=== PATIENT | female | born 1950 | race Caucasian/White ===

== ENCOUNTER 2019-02-21 01:52 | Outpatient (RCR) | payer MEDICARE, OTHER, SELFPAY ==
[2019-02-21] MEDS: Heparin 500 UNITS/5 ML SYRINGE IV (09:10)
[2019-02-21] MEDS: Normal Saline Flush 10 ML SYR IVP (09:10)
== END 2019-02-23 23:59 | disposition home or self-care (01) ==
LOC: INF 01:52
PROVIDERS: Visit Provider Internal Medicine
DX: Z45.2 Encounter for adjustment and management of vascular access device (principal)
CPT/HCPCS: 96523

== ENCOUNTER 2019-02-24 14:00 | Emergency (ER) | payer MEDICARE, OTHER, SELFPAY ==
[2019-02-24] VITALS (39 sets, daily range): BP systolic 57–115; BP diastolic 33–89; PULSE 52–115; RESP 12–32; TEMP 37.1; O2SAT 95–100
--- NOTE | 2019-02-24 14:29 | W.ED.GENAD ---
Discharge Plan Disposition Patient Disposition: HOME Condition: Stable Discharge Details Chief Complaint: GenMedical Clinical Impression: Leg pain, right, Hypotension Primary Care Provider: None,None ED Provider: Duncan Calderón Home Meds and New Rx's Prescriptions: New ciprofloxacin HCl 500 mg tablet 500 mg PO BID Qty: 14 RF: 0 No Action magnesium 30 mg Tablet 30 mg PO DAILY RF: 0 Discharge Instructions Instructions: Leg Pain (ED) Additional Instructions: you should receive a call tomorrow for an appointment for your ultrasound if you feel more ill or have new symptoms such as difficulty breathing or fevers return to the emergency department Discharge Data Discharge Date/Time-TO BE ENTERED AT DEPARTURE: 02/24/19 17:28 Medical Decision Making <Ayleen Hahn MD - Last Filed: 03/04/19 20:07> Jessi lOguin is a 69-year-old woman with a 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 On exam patient is well and nontoxic appearing. Systolic blood pressure in 50s, patient is tachycardic in the 110s. [id number] bedside ultrasound shows no pericardial effusion, no DVT in right popliteal region. Concern for PE/DVT versus infection versus ACS/CHF, dehydration, other. Exam/history is not consistent with meningitis, acute aortic pathology, acute intra-abdominal etiology. Plan for EKG, CT chest, screening labs, IV fluid hydration, telemetry. If CT chest negative will obtain ultrasound. EKG shows sinus tach at 107, normal axis, no acute ischemic changes, nondiagnostic EKG Patient monitored closely. Blood pressure improved to systolic 80-90 after IV fluid, radial pulses palpable after IV fluids. Patient's now at bedside, he reports that patient typically has a blood pressure with systolic in the 80s. He reports that this has been normal for her for some time. Patient continues to report that she feels well and in her usual state of health. We will continue fluid, hold Levophed. Labs show UTI, holding antibiotics pending results of CT chest. Awaiting Doppler of lower extremity pulses. DP pulses present bilaterally on Doppler per nursing. Patient signed out to Dr. Calderón at time of shift change with CT chest, treatment with antibiotics for UTI if no other bacterial infection found on CT, second liter fluid, reassessment pending. If CT negative, will need ultrasound of the lower leg to be performed tomorrow morning as no ultrasound available at this time. Medical Records Medical records reviewed: Yes I reviewed the patient's medical records. <Duncan Calderón MD - Last Filed: 02/24/19 17:13> Pt feels much better and BP now 112/80 on my exam and is ambulating without any symptoms. She does have some mass effect on the pulm artery supplying the right upper lobe. She is aware of this and sees an oncologist in [place]. I advised f/u with them and she will return tomorrow to have a leg u/s and return if worsening. will start cipro for likely uti Imaging Data Radiologic Study: Attestation: I personally reviewed and interpreted this imaging study as follows: Imaging: CT Scan Radiologist's impression: IMPRESSION: Severe thinning in the pulmonary artery supplying the right upper lobe suggesting mass effect from adjacent mass or lymphadenopathy in the mediastinum. There is right paratracheal soft tissue prominence suggesting underlying lymphadenopathy or mass. Left paratracheal lymph node versus esophageal mass on image /. Consider PET CT. Lab Data Lab results reviewed: Yes I reviewed the patient's lab results. HPI <Ayleen Hahn MD - Last Filed: 03/04/19 20:07> General Mode of arrival: ambulatory. Date/Time Provider Initiated Documentation: 02/24/19 14:29. Limitations to Documentation: no limitations. Information obtained by: patient, RN notes reviewed and old records reviewed. HPI Narrative: Jessi Olguin is a 69-year-old woman with history of cancer presenting to the emergency department with lightheadedness. Patient currently with diagnosis of small small lung cancer, has received radiation and chemotherapy with last chemotherapy in October. Patient recently in [place], and return to [place] in early January. Patient here reporting that for the past 4 days she has had right leg pain that is worse with moving the leg and standing, and also has felt lightheaded when upright or walking since approximately same time as her leg pain started. She denies any other pain, vomiting, diarrhea, shortness of breath, cough, fevers, dysuria, rash, numbness/weakness the extremities. She reports that she has been eating and drinking as usual. No history of blood clots. Feels otherwise well in her usual state of health. When she is resting in bed or on a couch, she does not have symptoms. Related Data Home Medications Medication Instructions Recorded Confirmed ciprofloxacin HCl 500 mg PO BID #14 tab 02/24/19 02/25/19 magnesium 30 mg PO DAILY 02/24/19 02/25/19 Previous Rx's Medication Instructions Recorded ciprofloxacin HCl 500 mg PO BID #14 tab 02/24/19 Allergies Allergy/AdvReac Type Severity Reaction Status Date / Time penicillin G AdvReac Unverified 02/25/19 10:43 penicillin V AdvReac Unverified 02/25/19 10:43 General Stated Complaint: GenMedical RUBEN: 2 Review of Systems <Ayleen Hahn MD - Last Filed: 03/04/19 20:07> Review of Systems Constitutional: denies fevers Eyes: denies eye pain ENT: denies facial pain, dental pain, sore throat Cardiovascular: denies chest pain, edema, reports lightheadedness Respiratory: denies SOB, cough GI: denies abdominal pain, vomiting, diarrhea : denies flank pain MSK: denies back pain, neck pain, arthralgias, reports myalgias right leg Skin: denies rash Neuro: denies headaches, numbness, focal weakness, vertigo PFSH <Ayleen Hahn MD - Last Filed: 03/04/19 20:07> Social History Smoking/Tobacco Use Status: Current every day Tobacco Type: cigarettes Alcohol Intake: current Alcohol Intake frequency: a few times a month Drug use: Occasionally Substance use type: marijuana Do you feel safe at home: Yes Do you feel safe in your relationship?: Yes Exam <Ayleen Hahn MD - Last Filed: 03/04/19 20:07> Narrative Exam Narrative: Constitutional: well and [id number], pleasant, conversing normally HENT: head atraumatic/normocephalic/normal inspection, mucous membranes moist Eyes: conjunctiva normal, sclera normal, pupils 3mm b/l Neck: no stridor, normal ROM, trachea midline Chest: normal inspection Resp: normal work of breathing, LCTAB Cardio: tachycardic rate, normal rhythm, no murmur appreciated GI: abdomen soft, non-tender, non-distended Back: normal inspection, no rash Skin: warm, dry, normal color, no rash Neuro: alert, not altered, grossly non-focal, normal tone Ext: no edema, no posterior calf tenderness, no skin changes of the lower extremities, DP pulses not palpable Psych: normal mood, normal affect, normal behavior Course <Ayleen Hahn MD - Last Filed: 03/04/19 20:07> Vital Signs Temperature 37.1 C 02/24/19 14:10 Pulse 111 H 02/24/19 14:10 Respiratory Rate 16 02/24/19 14:10 Blood Pressure 57/33 L 02/24/19 14:10 Pulse Oximetry 97 02/24/19 14:10 Temperature 37.1 C 02/24/19 14:10 Temperature Source Tympanic 02/24/19 14:10 Pulse 111 H 02/24/19 14:10 Respiratory Rate 16 02/24/19 14:10 Respiratory Effort Non-Labored 02/24/19 14:17 Blood Pressure 57/33 L 02/24/19 14:10 Pulse Oximetry 97 02/24/19 14:10 Oxygen Delivery Method Room Air 02/24/19 14:10 Oxygen Flow Rate 0 02/24/19 14:10 Pain Level 8 02/24/19 14:10 Sign Out <Ayleen Hahn MD - Last Filed: 03/04/19 20:07> Sign Out Data: Sign Out Comment: Patient signed out to Dr. Calderón at time of shift change with CT results, second liter IV fluid, antibiotics if UTI is isolated, reassessment pending. Last updated by Ayleen Hhan MD at 02/24/19 16:39
[2019-02-24 14:41] LABS: Abs Immature Grans 0.02 k/cumm (0.0-0.09); Absolute Basophil Count 0.03 k/cumm (0.0-0.2); Absolute Lymphocyte Count 1.59 k/cumm (1.2-3.4); Absolute Monocyte Count 0.83 k/cumm (0.11-0.7); Absolute Neutrophil Count 5.83 k/cumm (1.2-6.7); Basophils % 0.4; Eosinophils % 2.4; HCT 38.4 % (36.0-46.0); HGB 13.5 g/dL (12.0-15.5); Immature Grans % 0.2; Lactate-non-spesis 1.5 mmol/l (0.6-1.4); Lymphocytes % 18.7; Mean Corp. HGB Concentration 35.2 g/dL (32.0-36.0); Mean Corpuscular Hemoglobin 34.8 pg (27.0-33.0); Mean Platelet Volume 12.1 fL (8.0-11.0); Monocytes % 9.8; Neutrophils % 68.5; Platelet Count 205 x1000/uL (130-400); RBC 3.88 m/cumm (4.00-5.20); RBC Distribution Width 14.1 % (11.7-14.6)
[2019-02-24] MEDS: Normal Saline 1,000 ML 1000 ML IV (15:00)
[2019-02-24 15:10] LABS: ALT 20 U/L (12-78); AST 15 U/L (15-37); Albumin 3.7 g/dL (3.4-5.0); Alkaline Phosphatase 83 U/L (46-116); BUN 14 mg/dL (7-18); Bilirubin, Total 0.2 mg/dL (0.2-1.0); CREATININE 0.81 mg/dL (0.55-1.02); Chloride 102 mmol/L (98-107); Glucose 105 mg/dL (70-100); NT-proBNP 316 pg/mL; Potassium 3.6 mmol/L (3.5-5.1); Sodium 139 mmol/L (136-145); Total Protein 6.9 g/dL (6.4-8.2)
[2019-02-24 15:12] LABS: D-Dimer 978 ng/mlFEU (<500)
[2019-02-24 15:17] LABS: Troponin I < 0.05 ng/mL (0.00-0.06)
[2019-02-24 15:32] LABS: Bilirubin Negative (Negative); Blood Negative (Negative); Clarity Sl Cloudy (Clear); Glucose Negative (Negative); Ketones Negative (Negative); Leukocyte Esterase Moderate (Negative); Nitrite Positive (Negative); Urobilinogen 0.2 EU/dL (Up TO 0.2); pH 6.5 (5-8)
--- NOTE | 2019-02-24 15:35 | ED.GENADUL_ITS ---
Discharge Plan Disposition Patient Disposition: HOME Condition: Stable Discharge Details Chief Complaint: GenMedical Clinical Impression: Leg pain, right, Hypotension Primary Care Provider: None,None ED Provider: Duncan Calderón Home Meds and New Rx's Prescriptions: New ciprofloxacin HCl 500 mg tablet 500 mg PO BID Qty: 14 RF: 0 No Action magnesium 30 mg Tablet 30 mg PO DAILY RF: 0 Discharge Instructions Instructions: Leg Pain (ED) Additional Instructions: you should receive a call tomorrow for an appointment for your ultrasound if you feel more ill or have new symptoms such as difficulty breathing or fevers return to the emergency department Discharge Data Discharge Date/Time-TO BE ENTERED AT DEPARTURE: 02/24/19 17:28 Medical Decision Making <Ayleen Hahn MD - Last Filed: 03/04/19 20:07> Jessi Olguin is a 69-year-old woman with a 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 On exam patient is well and nontoxic appearing. Systolic blood pressure in 50s, patient is tachycardic in the 110s. [id number]-nl[facility] bedside ultrasound shows no pericardial effusion, no DVT in right popliteal region. Concern for PE/DVT versus infection versus ACS/CHF, dehydration, other. Exam/history is not consistent with meningitis, acute aortic pathology, acute intra-abdominal etiology. Plan for EKG, CT chest, screening labs, IV fluid hydration, telemetry. If CT chest negative will obtain ultrasound. EKG shows sinus tach at 107, normal axis, no acute ischemic changes, nondiagnostic EKG Patient monitored closely. Blood pressure improved to systolic 80-90 after IV fluid, radial pulses palpable after IV fluids. Patient's now at bedside, he reports that patient typically has a blood pressure with systolic in the 80s. He reports that this has been normal for her for some time. Patient continues to report that she feels well and in her usual state of health. We will continue fluid, hold Levophed. Labs show UTI, holding antibiotics pending results of CT chest. Awaiting Doppler of lower extremity pulses. DP pulses present bilaterally on Doppler per nursing. Patient signed out to Dr. Calderón at time of shift change with CT chest, treatment with antibiotics for UTI if no other bacterial infection found on CT, second liter fluid, reassessment pending. If CT negative, will need ultrasound of the lower leg to be performed tomorrow morning as no ultrasound available at this time. Medical Records Medical records reviewed: Yes I reviewed the patient's medical records. <Duncan Calderón MD - Last Filed: 02/24/19 17:13> Pt feels much better and BP now 112/80 on my exam and is ambulating without any symptoms. She does have some mass effect on the pulm artery supplying the right upper lobe. She is aware of this and sees an oncologist in [place]. I advised f/u with them and she will return tomorrow to have a leg u/s and return if worsening. will start cipro for likely uti Imaging Data Radiologic Study: Attestation: I personally reviewed and interpreted this imaging study as follows: Imaging: CT Scan Radiologist's impression: IMPRESSION: Severe thinning in the pulmonary artery supplying the right upper lobe suggesting mass effect from adjacent mass or lymphadenopathy in the mediastinum. There is right paratracheal soft tissue prominence suggesting underlying lymphadenopathy or mass. Left paratracheal lymph node versus esophageal mass on image /. Consider PET CT. Lab Data Lab results reviewed: Yes I reviewed the patient's lab results. HPI <Ayleen Hahn MD - Last Filed: 03/04/19 20:07> General Mode of arrival: ambulatory . Date/Time Provider Initiated Documentation: 02/24/19 14:29 . Limitations to Documentation: no limitations . Information obtained by: patient, RN notes reviewed and old records reviewed . HPI Narrative: Jessi Olguin is a 69-year-old woman with history of cancer presenting to the emergency department with lightheadedness. Patient currently with diagnosis of small small lung cancer, has received radiation and chemotherapy with last chemotherapy in October. Patient recently in [place], and return to [place] in early January. Patient here reporting that for the past 4 days she has had right leg pain that is worse with moving the leg and standing, and also has felt lightheaded when upright or walking since approximately same time as her leg pain started. She denies any other pain, vomiting, diarrhea, shortness of breath, cough, fevers, dysuria, rash, numbness/weakness the extremities. She reports that she has been eating and drinking as usual. No history of blood clots. Feels otherwise well in her usual state of health. When she is resting in bed or on a couch, she does not have symptoms. Related Data Home Medications Medication Instructions Recorded Confirmed ciprofloxacin HCl 500 mg PO BID #14 tab 02/24/19 02/25/19 magnesium 30 mg PO DAILY 02/24/19 02/25/19 Previous Rx's Medication Instructions Recorded ciprofloxacin HCl 500 mg PO BID #14 tab 02/24/19 Allergies Allergy/AdvReac Type Severity Reaction Status Date / Time penicillin G AdvReac Unverified 02/25/19 10:43 penicillin V AdvReac Unverified 02/25/19 10:43 General Stated Complaint: GenMedical RUBEN: 2 Review of Systems <Ayleen Hahn MD - Last Filed: 03/04/19 20:07> Review of Systems Constitutional: denies fevers Eyes: denies eye pain ENT: denies facial pain, dental pain, sore throat Cardiovascular: denies chest pain, edema, reports lightheadedness Respiratory: denies SOB, cough GI: denies abdominal pain, vomiting, diarrhea : denies flank pain MSK: denies back pain, neck pain, arthralgias, reports myalgias right leg Skin: denies rash Neuro: denies headaches, numbness, focal weakness, vertigo PFSH <Ayleen Hahn MD - Last Filed: 03/04/19 20:07> Social History Smoking/Tobacco Use Status: Current every day Tobacco Type: cigarettes Alcohol Intake: current Alcohol Intake frequency: a few times a month Drug use: Occasionally Substance use type: marijuana Do you feel safe at home: Yes Do you feel safe in your relationship?: Yes Exam <Ayleen Hahn MD - Last Filed: 03/04/19 20:07> Narrative Exam Narrative: Constitutional: well and [id number]-dbijvbsut, pleasant, conversing normally HENT: head atraumatic/normocephalic/normal inspection, mucous membranes moist Eyes: conjunctiva normal, sclera normal, pupils 3mm b/l Neck: no stridor, normal ROM, trachea midline Chest: normal inspection Resp: normal work of breathing, LCTAB Cardio: tachycardic rate, normal rhythm, no murmur appreciated GI: abdomen soft, non-tender, non-distended Back: normal inspection, no rash Skin: warm, dry, normal color, no rash Neuro: alert, not altered, grossly non-focal, normal tone Ext: no edema, no posterior calf tenderness, no skin changes of the lower extremities, DP pulses not palpable Psych: normal mood, normal affect, normal behavior Course <Ayleen Hahn MD - Last Filed: 03/04/19 20:07> Vital Signs Temperature 37.1 C 02/24/19 14:10 Pulse 111 H 02/24/19 14:10 Respiratory Rate 16 02/24/19 14:10 Blood Pressure 57/33 L 02/24/19 14:10 Pulse Oximetry 97 02/24/19 14:10 Temperature 37.1 C 02/24/19 14:10 Temperature Source Tympanic 02/24/19 14:10 Pulse 111 H 02/24/19 14:10 Respiratory Rate 16 02/24/19 14:10 Respiratory Effort Non-Labored 02/24/19 14:17 Blood Pressure 57/33 L 02/24/19 14:10 Pulse Oximetry 97 02/24/19 14:10 Oxygen Delivery Method Room Air 02/24/19 14:10 Oxygen Flow Rate 0 02/24/19 14:10 Pain Level 8 02/24/19 14:10 Sign Out <Ayleen Hahn MD - Last Filed: 03/04/19 20:07> Sign Out Data: Sign Out Comment: Patient signed out to Dr. Calderón at time of shift change with CT results, second liter IV fluid, antibiotics if UTI is isolated, reassessment pending. Last updated by Ayleen Hahn MD at 02/24/19 16:39
[2019-02-24 15:44] LABS: Bacteria Moderate HPF (Negative); C & S Indicated? Yes; Casts Negative LPF (Negative); Crystals Negative HPF (Negative); Epithelial Cells Few HPF (Negative); Mucus Negative (Negative); RBC 0-2 (0-2); WBC >50 HPF (0-5)
[2019-02-24] MEDS: Omnipaque 350 MG/ML 100 ML BTL IJ (16:00)
--- NOTE | 2019-02-24 16:00 | DI.CT_ITS ---
SYMPTOM/DIAGNOSIS: CANCER PT, LOW BP, LIGHTHEADEDNESS CHEST CT: There are no prior comparison exams. The patient has a history of cancer and no information is available. There is right paratracheal adenopathy and mild subcarinal adenopathy. There is mild thinning of the upper lobe pulmonary arteries adjacent to the mass. There is no evidence of pulmonary emboli. There is no evidence of aortic dissection. No pleural or pericardial effusion seen. A port is noted over the right chest. The lungs are suboptimally evaluated due to respiratory motion. No pulmonary nodules are seen. There is no evidence of infiltrate. There are no thoracic compression fractures or gross lytic bony lesions. There is a left adrenal nodule not fully included on the exam. The liver, spleen and visualized portions of the gallbladder and upper poles of the kidneys are unremarkable. IMPRESSION: No evidence of pulmonary emboli or other acute abnormality. There is apparent right paratracheal adenopathy or adjacent mass narrowing right upper lobe vessels.
[2019-02-24 16:30] LABS: Procalcitonin < 0.1 ng/mL
[2019-02-24] MEDS: Lactated Ringers 1,000 ML 1000 ML IV (16:46)
--- NOTE | 2019-02-24 16:46 | DI.VRAD_ITS ---
Addendum created by Flavio Bowling MD on 02/24/2019 4:46:11 PM EDT No definite pulmonary embolism identified. Initial report created on 02/24/2019 4:45:55 PM EDT EXAM: CT Angiography Chest With Contrast EXAM DATE/TIME: 02/24/2019 2:44 PM CLINICAL HISTORY: 69 years old, female; Other: Low BP, lightheadedness, cancer patient TECHNIQUE: Imaging protocol: Axial computed tomographic angiography images of the chest with intravenous contrast using CT angiography protocol. Coronal and sagittal reformatted images were created and reviewed. 3D rendering: MIP reconstructed images were created and reviewed. Contrast material: OMNIPAQUE 350; Contrast volume: 100 ml; Contrast route: RT POWER PORT; COMPARISON: No relevant prior studies available. FINDINGS: Pulmonary arteries: Severe thinning in the pulmonary artery supplying the right upper lobe suggesting mass effect from adjacent mass or lymphadenopathy in the mediastinum. There is right paratracheal soft tissue prominence suggesting underlying lymphadenopathy or mass. Left paratracheal lymph node versus esophageal mass on image 6/11. Aorta: Unremarkable. No aortic aneurysm. No aortic dissection. Lungs: Unremarkable. No consolidation. No masses. Pleural space: Unremarkable. No pneumothorax. No pleural effusion. Heart: Unremarkable. No cardiomegaly. No pericardial effusion. Pancreas: 1 cm hypodense lesion in the pancreatic body. Adrenals: There is a 1.3 x 2.1 cm nonspecific mass in the left adrenal gland. It measures 57 Hounsfield units. Bones/joints: Unremarkable. No acute fracture. Soft tissues: Unremarkable. IMPRESSION: Severe thinning in the pulmonary artery supplying the right upper lobe suggesting mass effect from adjacent mass or lymphadenopathy in the mediastinum. There is right paratracheal soft tissue prominence suggesting underlying lymphadenopathy or mass. Left paratracheal lymph node versus esophageal mass on image 6/11. Consider PET CT. Dictated and Authenticated by: Flavio Bowling MD. Ordering:REJI Abbasi MD
[2019-02-24] MEDS: Ciprofloxacin 500 MG TAB PO (17:10)
[2019-02-24] MEDS: Normal Saline Flush 10 ML SYR IVP (17:17)
[2019-02-24] MEDS: Heparin 500 UNITS/5 ML SYRINGE (17:24)
== END 2019-02-24 17:28 | disposition home or self-care (01) ==
PROVIDERS: Student in an Organized Health Care Education/Training Program; Emergency Provider Emergency Medicine
DX: I95.9 Hypotension, unspecified (principal); M79.604 Pain in right leg; C34.91 Malignant neoplasm of unspecified part of right bronchus or lung; Z92.3 Personal history of irradiation; Z92.21 Personal history of antineoplastic chemotherapy
CPT/HCPCS: 36415; 71275; 80053; 84145; 87040; 87077; 93005; 96361; 96365; 99285; 81003; 81015; 83605; 83880; 84484; 85025; 85379; 87086; 87186; 93010; J3490

== ENCOUNTER 2019-02-25 07:53 | Outpatient (CLI) | payer MEDICARE, OTHER, SELFPAY ==
--- NOTE | 2019-02-25 10:32 | DI.US_ITS ---
SYMPTOM/DIAGNOSIS; RT LEG PAIN, CANCER PATIENT RIGHT LOWER EXTREMITY ULTRASOUND: The femoral and popliteal veins and visualized calf veins are freely compressible. No thrombus is visible. The Doppler venous wave form augments normally. No superficial thrombophlebitis or Butterfield's cyst is seen. IMPRESSION: Negative right lower extremity ultrasound. No evidence of DVT.
== END 2019-02-25 08:13 ==
PROVIDERS: Visit Provider Emergency Medicine
DX: M79.604 Pain in right leg (principal)
CPT/HCPCS: 93971

== ENCOUNTER 2019-02-25 10:36 | Emergency (ER) | payer MEDICARE, OTHER, SELFPAY ==
[2019-02-25 10:39] VITALS: BP 109/86; PULSE 102; RESP 18; TEMP 37; O2SAT 99
--- NOTE | 2019-02-25 11:05 | ED.GENADUL_ITS ---
Discharge Plan Disposition Patient Disposition: HOME Condition: Stable Discharge Details Chief Complaint: Recheck Clinical Impression: Bilateral leg pain Primary Care Provider: None,None ED Provider: Bam Arroyo Home Meds and New Rx's Prescriptions: No Action magnesium 30 mg Tablet 30 mg PO DAILY RF: 0 ciprofloxacin HCl 500 mg tablet 500 mg PO BID Qty: 14 RF: 0 Discharge Instructions Instructions: Leg Pain (ED) Additional Instructions: You may continue to take [id number] acetaminophen or other [id number] pain relievers as directed for your discomfort. You may slowly advance activity as tolerated and consider purchasing more supportive footwear to see if this relieves her symptoms. Return immediately to the emergency department for any new or significant change or concerns that need reexamination Referrals: [facility] Emergency Dept. [Outside] (As needed for reassessment) Discharge Data Discharge Date/Time-TO BE ENTERED AT DEPARTURE: 02/25/19 11:24 Medical Decision Making Patient presenting to the emergency department for chief complaint of recheck of right leg pain. Patient was in the emergency department yesterday and had thorough work-up and examination for hypotension and leg pain but ultrasound was not available so she came back to the hospital today for ultrasound imaging. Preliminary report from food science technician shows no DVT in the right lower extremity. Patient does state increased activity, wearing sandals and flip-flops, and anterior midshaft tibial pain mostly in the right leg but also some in the left. Patient denies any injury or trauma. 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 Patient denies any other symptoms, lightheadedness or syncope, chest pain or any change in breathing. Physical exam of the lower extremities shows 1+ trace edema that is nonpitting, anterior bilateral midshaft tibial pain with more on the right than the left but no calf pain, no medial thigh pain, patient ambulatory full weightbearing. Given negative ultrasound and no change in condition from yesterday I do not feel that there is any other emergent testing required and have high suspicion of this being musculoskeletal in nature. Patient was offered x-ray imaging of the lower extremity given that she does have cancer and for possible consideration of metastasis while I feel that this would be odd to have metastasis this low in the leg it is considered patient stated at this point she would defer on any imaging and continue to do conservative management and therapy along with changing footwear to see if this improves her lower leg discomfort. Patient was encouraged to return to the emergency department for any new or significant worsening of symptoms. Patient does not have a local primary care provider but states that she would prefer to call her doctors in [place] or return to the ED as needed. HPI General Mode of arrival: ambulatory . Date/Time Provider Initiated Documentation: 02/25/19 10:36 . Limitations to Documentation: no limitations . Information obtained by: patient, family, RN notes reviewed and old records reviewed . History of Present Illness 69 year old F presents to the emergency department with the chief complaint of Right leg pain, described as moderate, Patient started experiencing this week(s) (1) and it has been constant. Movement worsens symptoms . Patient did receive the following treatments prior to arrival, NSAID Related Data Home Medications Medication Instructions Recorded Confirmed ciprofloxacin HCl 500 mg PO BID #14 tab 02/24/19 02/25/19 magnesium 30 mg PO DAILY 02/24/19 02/25/19 Previous Rx's Medication Instructions Recorded ciprofloxacin HCl 500 mg PO BID #14 tab 02/24/19 Allergies Allergy/AdvReac Type Severity Reaction Status Date / Time penicillin G AdvReac Unverified 02/25/19 10:43 penicillin V AdvReac Unverified 02/25/19 10:43 General Stated Complaint: Recheck RUBEN: 5 Review of Systems Constitutional Denies chills and Denies fever(s) Cardiovascular Denies chest pain Gastrointestinal Denies abdominal pain Musculoskeletal Reports as per HPI, Reports joint swelling and Denies tingling Integumentary/Breasts Denies rash and Denies skin pain Neurologic Denies tingling [facility] Social History Smoking/Tobacco Use Status: Current every day Tobacco Type: cigarettes Alcohol Intake: current Alcohol Intake frequency: a few times a month Drug use: Occasionally Substance use type: marijuana Do you feel safe at home: Yes Do you feel safe in your relationship?: Yes Exam Const General: cooperative, healthy appearing, comfortable and no acute distress Orientation: alert, awake and oriented x3 Resp Effort & Inspection: normal respiratory effort and able to speak in complete sentences Cardio Rate: regular rate Rhythm: regular rhythm Pulses: normal peripheral pulses Extrem General: normal exam except as noted Right lower extremity: edema Details: non-pitting and 1+ and lower leg Details: tenderness Location: of the midshaft tibia (Anterior); not of the posterior calf; no localized swelling, no palpable cords, no abrasions, no ecchymosis and no deformity Left lower extremity: lower leg Details: tenderness (mild) Location: of the midshaft tibia (Anterior) Course Vital Signs Temperature 37.0 C 02/25/19 10:39 Pulse 102 H 02/25/19 10:39 Respiratory Rate 18 02/25/19 10:39 Blood Pressure 109/86 02/25/19 10:39 Pulse Oximetry 99 02/25/19 10:39 Temperature 37.0 C 02/25/19 10:39 Pulse 102 H 02/25/19 10:39 Respiratory Rate 18 02/25/19 10:39 Respiratory Effort 02/25/19 10:42 Blood Pressure 109/86 02/25/19 10:39 Blood Pressure Position Sitting 02/25/19 10:39 Pulse Oximetry 99 02/25/19 10:39 Oxygen Delivery Method Room Air 02/25/19 10:39 Oxygen Flow Rate 0 02/25/19 10:39
[2019-02-25 11:24] VITALS: BP 109/86; PULSE 102; RESP 18; TEMP 37; O2SAT 99
== END 2019-02-25 11:24 | disposition home or self-care (01) ==
PROVIDERS: Emergency Provider Nurse Practitioner Family
DX: M79.604 Pain in right leg (principal); M79.605 Pain in left leg; R60.0 Localized edema
CPT/HCPCS: 99282; 93971

== ENCOUNTER 2019-02-26 10:12 | Emergency (ER) | payer MEDICARE, OTHER, SELFPAY ==
[2019-02-26] VITALS (31 sets, daily range): BP systolic 48–119; BP diastolic 24–80; PULSE 77–111; RESP 12–25; TEMP 36.6; O2SAT 92–99
--- NOTE | 2019-02-26 10:23 | DI.CT_ITS ---
SYMPTOMS/DIAGNOSIS: ALTERED FOR 15 MINUTES, NOW RESOLVED, HX MALIGNANCY CRANIAL CT: The study was carried out without contrast enhancement. There is no evidence of an intra or extra-axial hemorrhage, mass or edema. There is nothing to suggest a territorial infarct. The martin/white matter differentiation is maintained. There are some faint areas of diminished absorption in the frontoparietal white matter consistent with small vessel disease. The ventricles are normal. There is no evidence of a skull fracture. The paranasal sinuses are intact. There is no mastoid effusion. SUMMARY: No acute intracranial abnormality is demonstrated.
--- NOTE | 2019-02-26 10:26 | W.ED.GENAD ---
Discharge Plan Disposition Patient Disposition: HOME Condition: Good Discharge Details Chief Complaint: Orthopedic Clinical Impression: Episodic lightheadedness, Acute dehydration Primary Care Provider: None,None ED Provider: Roberto Miner Home Meds and New Rx's Prescriptions: No Action magnesium 30 mg Tablet 30 mg PO DAILY RF: 0 ciprofloxacin HCl 500 mg tablet 500 mg PO BID Qty: 14 RF: 0 Discharge Instructions Instructions: Dehydration (ED) Additional Instructions: Your CT scan shows no evidence of stroke or bleed, no evidence of blood clot in your lungs. please drink plenty of fluids throughout the day. Please do not perform any significant vigorous activities. Will be setting up a primary care follow-up appointment with you this week. Please do not miss this appointment. If you notice any worsening of your symptoms, or any new symptoms such as vomiting, diarrhea, fever, chills, shortness of breath, chest pain, numbness, weakness, or fainting , please return immediately to the emergency department for reevaluation. Please follow up with your primary care provider as soon as possible for reassessment and reevaluation. As always, it was a pleasure participating in your medical care today. Discharge Data Discharge Date/Time-TO BE ENTERED AT DEPARTURE: 02/26/19 13:35 Medical Decision Making This is a 69-year-old female with a past medical history of small cell lung cancer, with no chemotherapy since October, who recently had a thorough work-up over the last 3 days with CTA of the chest, showing known mass, but no significant PE. She did have a urinary tract infection was started on Cipro which she is still currently on. She had an ultrasound that was negative. An otherwise benign work-up. She presents today for altered mental status roughly 20 minutes prior to arrival she had an acute episode of altered mental status, notable imbalance and weakness. She had no associated chest symptoms. By the time she arrived her weakness and mental status had notably improved. Mental status had returned to baseline however she was still slightly weak with ambulation but has no evidence of ataxia. Exam demonstrates no focal neurologic deficits at this time. Vital signs demonstrate tachycardia but no hypotension. No clinical evidence of meningitis. Differential includes stroke, TIA, electrolyte imbalance or dehydration. We will get a d-dimer for further evaluation of potential PE with her tachycardia, history of cancer, and near syncope. We will rehydrate, and evaluate further. Patient's laboratory work-up has returned, no significant leukocytosis, bandemia, or anemia. Electrolytes are within normal limits, VBG normal, renal function stable. Troponin negative, alcohol negative. D-dimer was elevated, CT angiogram was ordered is negative for acute process, or PE per radiology report. On reassessment after rehydration patient states that she feels very well and would like to go home. She continues to demonstrate no neurologic abnormalities on repeat neurologic exam. At this time based on the patient's clinical history and current symptoms they do seem inconsistent with stroke or TIA. The patient is in the lowest risk category for the ABCD 2 risk score. However as it is on the differential, in addition to more likely dehydration, I did discuss with the patient staying overnight, with observation, reassessment. Patient made it exquisitely clear that she does not want to stay overnight, and additionally she would like to go home. I did discuss risks and benefits of this and the patient clearly understands. Her is at bedside, and he agrees with the patient's request to go home. Respecting the patient's wishes she will be discharged home. She does not have a primary care provider here, and she and her will be staying up here until May. We have placed a request with case management for new PCP with close follow-up. Discussed red flags for which to return. I have extensively reviewed the treatment plan and discharge instructions with the patient and their family. I have addressed all patient concerns at this time. The patient and family was made aware of what symptoms to monitor for that would warrant a return to the emergency department. Discussed the plan with the patient and family, they demonstrate verbal understanding and agreement with our assessment and plan at this time. EKG 10: 25 Rate 108, intervals normal, sinus tachycardia, no significant ST elevations or depressions, no T wave inversions, no Q waves. Notable low voltage in the precordial leads. Exam(s) a CT:CT head wo SYMPTOMS/DIAGNOSIS: ALTERED FOR 15 MINUTES, NOW RESOLVED, HX MALIGNANCY CRANIAL CT: The study was carried out without contrast enhancement. There is no evidence of an intra or extra-axial hemorrhage, mass or edema. There is nothing to suggest a territorial infarct. The martin/white matter differentiation is maintained. There are some faint areas of diminished absorption in the frontoparietal white matter consistent with small vessel disease. The ventricles are normal. There is no evidence of a skull fracture. The paranasal sinuses are intact. There is no mastoid effusion. SUMMARY: No acute intracranial abnormality is demonstrated. PE CHEST CTA: CT angiography was performed with multi slice acquisition and multi planar and 3D reconstruction. The study was conducted according to the usual protocol with an intravenous injection of 100 cc's of Omnipaque 350. There is no evidence of PE. There are chronic pulmonary changes. No infiltrate is identified. There is no pleural effusion. The heart is within normal limits in size. There is no evidence of right ventricular strain. No pericardial effusion is apparent. There are atherosclerotic changes involving the aorta without evidence of an aneurysm. There is no definite evidence of hilar or mediastinal adenopathy. Aside from mild degenerative changes involving the dorsal spine, the bony structures are intact. SUMMARY: No evidence of pulmonary embolic disease. HPI General Date/Time Provider Initiated Documentation: 02/26/19 10:12. HPI Narrative: This is a 69-year-old female with a past medical history of small cell lung cancer, with known mass, who sees oncology in [place], with last chemotherapy in October. She was recently here twice over the last 3 days for evaluation of leg pain, mild lightheadedness. She had a notably thorough work-up which showed a CT scan of the chest with evidence of mass, but no other significant abnormality, improvement of her symptoms with fluids. Ultrasound of the lower extremities showed no clot. She was started on Cipro for urinary tract infection which she is still taking. She presents today for altered mental status. She states that roughly 18 minutes ago she and her were at the [facility] when suddenly she became confused, and had notable difficulty using EKG machine. She became unbalanced, and had difficulty ambulating. She did not fall. She was able to get to the car with the assistance of her . She was immediately brought here for further evaluation. At this time the patient states that her mental confusion is totally resolved. She denies any weakness, numbness or tingling, chest pain, chest heaviness, pleuritic chest pain, shortness of breath. She denies any history of stroke, cardiac disease, or PE. Aside for feeling slightly weak at this time she states that she otherwise feels much better. Patient has no other complaints at this time. No other modifying factors. She denies any vomiting, diarrhea, abdominal pain, numbness, tingling, weakness, headache, visual changes. Related Data Home Medications Medication Instructions Recorded Confirmed ciprofloxacin HCl 500 mg PO BID #14 tab 02/24/19 02/25/19 magnesium 30 mg PO DAILY 02/24/19 02/25/19 Previous Rx's Medication Instructions Recorded ciprofloxacin HCl 500 mg PO BID #14 tab 02/24/19 Allergies Allergy/AdvReac Type Severity Reaction Status Date / Time penicillin G AdvReac Unverified 02/25/19 10:43 penicillin V AdvReac Unverified 02/25/19 10:43 General RUBEN: 5 Review of Systems Review of Systems All systems reviewed & are unremarkable except as noted in HPI and below PFSH Social History Smoking/Tobacco Use Status: Current every day Tobacco Type: cigarettes Alcohol Intake: current Alcohol Intake frequency: a few times a month Drug use: Occasionally Substance use type: marijuana Do you feel safe at home: Yes Do you feel safe in your relationship?: Yes Exam Narrative Exam Narrative: 1.Const: Well-nourished, Well-developed, appearing stated age 2.Eyes: PERRL, no conjunctival injection, and symmetrical lids. 3.ENT: Atraumatic external nose and ears. Notably dry MM. Neck: Symmetric, trachea midline, No thyromegaly. 4.CVS: +S1/S2, No murmurs or gallops. Peripheral pulses 2+ and equal in all extremities. Brisk capillary refill in all extremities. 5.RESP: Unlabored respiratory effort. Clear to auscultation bilaterally. No wheezes rales or rhonchi 6.GI: Soft, Nontender/Nondistended, No hepatosplenomegaly. No guarding or rebound. 7.MSK: Normocephalic/Atraumatic, Extremities w/o deformity or ttp No cyanosis or clubbing, Normal movement of all extremities 8.Skin: Warm, Dry. No rashes or lesions. 9.Neuro: engineer fishing vessel II-XII grossly intact. Sensation grossly intact, no focal neurologic deficits. All 6 cardinal planes of vision are fully intact. No evidence of rotatory or vertical nystagmus. The patient demonstrated a normal [id number], good dexterity. There was no evidence of dysdiadochokinesia. Patient was able to ambulate without difficulty. There was no wide-based gait. Romberg, and [id number] are both normal on testing. Sensation was intact bilaterally as well as muscle strength bilaterally for all extremities. Patient was able to verbalize butter cup with no slurring, or miss pronunciation. Patient is able to hold bilateral arms up for 5 seconds and there is no pronator drift, patient also holds legs up for 10 seconds bilaterally without any drop, sensation intact to light touch in hands and feet bilaterally. Cerebellar exam normal as tested by [id number], [id number], rapid alternating movements, fine finger movements. Visual singletary intact peripherally. Normal speech pattern and verbal understanding. 10.Psych: (AAO) x3. Appropriate mood and affect
--- NOTE | 2019-02-26 10:34 | ED.GENADUL_ITS ---
Discharge Plan Disposition Patient Disposition: HOME Condition: Good Discharge Details Chief Complaint: Orthopedic Clinical Impression: Episodic lightheadedness, Acute dehydration Primary Care Provider: None,None ED Provider: Roberto Miner Home Meds and New Rx's Prescriptions: No Action magnesium 30 mg Tablet 30 mg PO DAILY RF: 0 ciprofloxacin HCl 500 mg tablet 500 mg PO BID Qty: 14 RF: 0 Discharge Instructions Instructions: Dehydration (ED) Additional Instructions: Your CT scan shows no evidence of stroke or bleed, no evidence of blood clot in your lungs. please drink plenty of fluids throughout the day. Please do not perform any significant vigorous activities. Will be setting up a primary care follow-up appointment with you this week. Please do not miss this appointment. If you notice any worsening of your symptoms, or any new symptoms such as vomiting, diarrhea, fever, chills, shortness of breath, chest pain, numbness, weakness, or fainting , please return immediately to the emergency department for reevaluation. Please follow up with your primary care provider as soon as possible for reassessment and reevaluation. As always, it was a pleasure participating in your medical care today. Discharge Data Discharge Date/Time-TO BE ENTERED AT DEPARTURE: 02/26/19 13:35 Medical Decision Making This is a 69-year-old female with a past medical history of small cell lung cancer, with no chemotherapy since October, who recently had a thorough work- up over the last 3 days with CTA of the chest, showing known mass, but no significant PE. She did have a urinary tract infection was started on Cipro which she is still currently on. She had an ultrasound that was negative. An otherwise benign work-up. She presents today for altered mental status roughly 20 minutes prior to arrival she had an acute episode of altered mental status, notable imbalance and weakness. She had no associated chest symptoms. By the time she arrived her weakness and mental status had notably improved. Mental status had returned to baseline however she was still slightly weak with ambulation but has no evidence of ataxia. Exam demonstrates no focal neurologic deficits at this time. Vital signs demonstrate tachycardia but no hypotension. No clinical evidence of meningitis. Differential includes stroke, TIA, electrolyte imbalance or dehydration. We will get a d-dimer for further evaluation of potential PE with her tachycardia, history of cancer, and near syncope. We will rehydrate, and evaluate further. Patient's laboratory work-up has returned, no significant leukocytosis, bandemia, or anemia. Electrolytes are within normal limits, VBG normal, renal function stable. Troponin negative, alcohol negative. D-dimer was elevated, CT angiogram was ordered is negative for acute process, or PE per radiology report. On reassessment after rehydration patient states that she feels very well and would like to go home. She continues to demonstrate no neurologic abnormalities on repeat neurologic exam. At this time based on the patient's clinical history and current symptoms they do seem inconsistent with stroke or TIA. The patient is in the lowest risk category for the ABCD 2 risk score. However as it is on the differential, in addition to more likely dehydration, I did discuss with the patient staying overnight, with observation, reassessment. Patient made it exquisitely clear that she does not want to stay overnight, and additionally she would like to go home. I did discuss risks and benefits of this and the patient clearly understands. Her is at bedside, and he agrees with the patient's request to go home. Respecting the patient's wishes she will be discharged home. She does not have a primary care provider here, and she and her will be staying up here until May. We have placed a request with case management for new PCP with close follow-up. Discussed red flags for which to return. I have extensively reviewed the treatment plan and discharge instructions with the patient and their family. I have addressed all patient concerns at this time. The patient and family was made aware of what symptoms to monitor for that would warrant a return to the emergency department. Discussed the plan with the patient and family, they demonstrate verbal understanding and agreement with our assessment and plan at this time. EKG 10: 25 Rate 108, intervals normal, sinus tachycardia, no significant ST elevations or depressions, no T wave inversions, no Q waves. Notable low voltage in the precordial leads. Exam(s) a CT:CT head wo SYMPTOMS/DIAGNOSIS: ALTERED FOR 15 MINUTES, NOW RESOLVED, HX MALIGNANCY CRANIAL CT: The study was carried out without contrast enhancement. There is no evidence of an intra or extra-axial hemorrhage, mass or edema. There is nothing to suggest a territorial infarct. The martin/white matter differentiation is maintained. There are some faint areas of diminished absorption in the frontoparietal white matter consistent with small vessel disease. The ventricles are normal. There is no evidence of a skull fracture. The paranasal sinuses are intact. There is no mastoid effusion. SUMMARY: No acute intracranial abnormality is demonstrated. PE CHEST CTA: CT angiography was performed with multi slice acquisition and multi planar and 3D reconstruction. The study was conducted according to the usual protocol with an intravenous injection of 100 cc's of Omnipaque 350. There is no evidence of PE. There are chronic pulmonary changes. No infiltrate is identified. There is no pleural effusion. The heart is within normal limits in size. There is no evidence of right ventricular strain. No pericardial effusion is apparent. There are atherosclerotic changes involving the aorta without evidence of an aneurysm. There is no definite evidence of hilar or mediastinal adenopathy. Aside from mild degenerative changes involving the dorsal spine, the bony structures are intact. SUMMARY: No evidence of pulmonary embolic disease. HPI General Date/Time Provider Initiated Documentation: 02/26/19 10:12 . HPI Narrative: This is a 69-year-old female with a past medical history of small cell lung cancer, with known mass, who sees oncology in [place], with last chemotherapy in October. She was recently here twice over the last 3 days for evaluation of leg pain, mild lightheadedness. She had a notably thorough work- up which showed a CT scan of the chest with evidence of mass, but no other significant abnormality, improvement of her symptoms with fluids. Ultrasound of the lower extremities showed no clot. She was started on Cipro for urinary tract infection which she is still taking. She presents today for altered me ntal status. She states that roughly 18 minutes ago she and her were at the [facility] when suddenly she became confused, and had notable difficulty using EKG machine. She became unbalanced, and had difficulty ambulating. She did not fall. She was able to get to the car with the assistance of her . She was immediately brought here for further evaluation. At this time the patient states that her mental confusion is totally resolved. She denies any weakness, numbness or tingling, chest pain, chest heaviness, pleuritic chest pain, shortness of breath. She denies any history of stroke, cardiac disease, or PE. Aside for feeling slightly weak at this time she states that she otherwise feels much better. Patient has no other complaints at this time. No other modifying factors. She denies any vomiting, diarrhea, abdominal pain, numbness, tingling, weakness, headache, visual changes. Related Data Home Medications Medication Instructions Recorded Confirmed ciprofloxacin HCl 500 mg PO BID #14 tab 02/24/19 02/25/19 magnesium 30 mg PO DAILY 02/24/19 02/25/19 Previous Rx's Medication Instructions Recorded ciprofloxacin HCl 500 mg PO BID #14 tab 02/24/19 Allergies Allergy/AdvReac Type Severity Reaction Status Date / Time penicillin G AdvReac Unverified 02/25/19 10:43 penicillin V AdvReac Unverified 02/25/19 10:43 General RUBEN: 5 Review of Systems Review of Systems All systems reviewed & are unremarkable except as noted in HPI and below PFSH Social History Smoking/Tobacco Use Status: Current every day Tobacco Type: cigarettes Alcohol Intake: current Alcohol Intake frequency: a few times a month Drug use: Occasionally Substance use type: marijuana Do you feel safe at home: Yes Do you feel safe in your relationship?: Yes Exam Narrative Exam Narrative: 1.Const: Well-nourished, Well-developed, appearing stated age 2.Eyes: PERRL, no conjunctival injection, and symmetrical lids. 3.ENT: Atraumatic external nose and ears. Notably dry MM. Neck: Symmetric, trachea midline, No thyromegaly. 4.CVS: +S1/S2, No murmurs or gallops. Peripheral pulses 2+ and equal in all extremities. Brisk capillary refill in all extremities. 5.RESP: Unlabored respiratory effort. Clear to auscultation bilaterally. No wheezes rales or rhonchi 6.GI: Soft, Nontender/Nondistended, No hepatosplenomegaly. No guarding or rebound. 7.MSK: Normocephalic/Atraumatic, Extremities w/o deformity or ttp No cyanosis or clubbing, Normal movement of all extremities 8.Skin: Warm, Dry. No rashes or lesions. 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 Sensation grossly intact, no focal neurologic deficits. All 6 cardinal planes of vision are fully intact. No evidence of rotatory or vertical nystagmus. The patient demonstrated a normal ysjjma-[id number]-elosif, good dexterity. There was no evidence of dysdiadochokinesia. Patient was able to ambulate without difficulty. There was no wide-based gait. Romberg, and lprz-ja-kgso are both normal on testing. Sensation was intact bilaterally as well as muscle strength bilaterally for all extremities. Patient was able to verbalize butter cup with no slurring, or miss pronunciation. Patient is able to hold bilateral arms up for 5 seconds and there is no pronator drift, patient also holds legs up for 10 seconds bilaterally without any drop, sensation intact to light touch in hands and feet bilaterally. Cerebellar exam normal as tested by [id number], [id number], rapid alternating movements, fine finger movements. Visual singletary intact peripherally. Normal speech pattern and verbal understanding. 10.Psych: (AAO) x3. Appropriate mood and affect
[2019-02-26] MEDS: Normal Saline 1,000 ML 1000 ML IV (10:42)
--- NOTE | 2019-02-26 10:43 | NUR.NOTE ---
Nursing Note: MD aware of BP, normal saline bolus hanging
--- NOTE | 2019-02-26 10:46 | NUR.NOTE ---
Nursing Note: pt in CT Scan, will redraw labs on arrival back to room
[2019-02-26 10:50] LABS: Abs Immature Grans 0.03 k/cumm (0.0-0.09); Absolute Basophil Count 0.04 k/cumm (0.0-0.2); Absolute Eosinophil Count 0.12 k/cumm (0.0-0.7); Absolute Lymphocyte Count 1.65 k/cumm (1.2-3.4); Absolute Monocyte Count 0.67 k/cumm (0.11-0.7); Absolute Neutrophil Count 4.52 k/cumm (1.2-6.7); Basophils % 0.6; Eosinophils % 1.7; HCT 40.4 % (36.0-46.0); HGB 13.6 g/dL (12.0-15.5); Immature Grans % 0.4; Lymphocytes % 23.5; Mean Corp. HGB Concentration 33.7 g/dL (32.0-36.0); Mean Corpuscular Hemoglobin 33.6 pg (27.0-33.0); Mean Corpuscular Volume 99.8 fL (80-95); Mean Platelet Volume 11.9 fL (8.0-11.0); Monocytes % 9.5; Neutrophils % 64.3; Platelet Count 201 x1000/uL (130-400); RBC 4.05 m/cumm (4.00-5.20); RBC Distribution Width 13.8 % (11.7-14.6); White Blood Cell Count 7.03 k/cumm (4.4-10.8)
[2019-02-26 10:58] LABS: Ammonia 29 umol/L (11-32)
[2019-02-26 11:04] LABS: PTT Activated 18.1 sec (21.0-31.4); Prothrombin Time 9.9 sec (9.3-11.0)
[2019-02-26 11:05] LABS: ALT 17 U/L (12-78); AST 20 U/L (15-37); Albumin 3.7 g/dL (3.4-5.0); Alkaline Phosphatase 77 U/L (46-116); Anion Gap 10.2 mmol/L (3-11); BUN 10 mg/dL (7-18); Bilirubin, Total 0.3 mg/dL (0.2-1.0); CO2 22.8 mmol/L (21.0-32.0); CREATININE 0.64 mg/dL (0.55-1.02); Calcium 9.1 mg/dL (8.5-10.1); Chloride 101 mmol/L (98-107); Glucose 105 mg/dL (70-100); Sodium 134 mmol/L (136-145)
[2019-02-26 11:06] LABS: HCO3 (Venous) 25 mmol/L (22-28); O2 Sat (Venous) 84 % (70-80); TCO2 (Venous) 22 mmol/L (22-29); pCO2 (Venous) 38 mm/Hg (34-47); pH (Venous) 7.42 (7.32-7.43); pO2 (Venous) 44 mm/Hg (28-44)
[2019-02-26 11:12] LABS: Troponin I < 0.05 ng/mL (0.00-0.06)
[2019-02-26 11:23] LABS: D-Dimer 1003 ng/mlFEU (<500); ETHANOL BLOOD < 3.0 mg/dL (<3)
--- NOTE | 2019-02-26 11:27 | DI.CT_ITS ---
SYMPTOMS/DIAGNOSIS: SYNCOPE, CANCER, ELEVATED D DIMER PE CHEST CTA: CT angiography was performed with multi slice acquisition and multi planar and 3D reconstruction. The study was conducted according to the usual protocol with an intravenous injection of 100 cc's of Omnipaque 350. There is no evidence of PE. There are chronic pulmonary changes. No infiltrate is identified. There is no pleural effusion. The heart is within normal limits in size. There is no evidence of right ventricular strain. No pericardial effusion is apparent. There are atherosclerotic changes involving the aorta without evidence of an aneurysm. There is no definite evidence of hilar or mediastinal adenopathy. Aside from mild degenerative changes involving the dorsal spine, the bony structures are intact. SUMMARY: No evidence of pulmonary embolic disease.
[2019-02-26] MEDS: Omnipaque 350 MG/ML 100 ML BTL IV (12:29)
--- NOTE | 2019-03-03 19:10 | NUR.NOTE ---
Nursing Note: Demographics was faxed to [facility] on 02-26-19 so that they could schedule patient for an appt. Augusta Oneil was on for telephone call. Nikki Ren.
== END 2019-02-26 13:35 | disposition home or self-care (01) ==
PROVIDERS: Emergency Provider Student in an Organized Health Care Education/Training Program
DX: R42 Dizziness and giddiness (principal); E86.0 Dehydration; R79.9 Abnormal finding of blood chemistry, unspecified; C34.90 Malignant neoplasm of unspecified part of unspecified bronchus or lung
CPT/HCPCS: 36415; 71275; 80053; 82805; 93005; 96360; 99285; 70450; 80320; 82140; 84484; 85025; 85379; 85610; 85730; 93010; J3490

== ENCOUNTER 2019-03-24 14:56 | Emergency (ER) | payer MEDICARE, OTHER, SELFPAY ==
[2019-03-24] VITALS (44 sets, daily range): BP systolic 49–110; BP diastolic 24–95; PULSE 92–148; RESP 15–27; TEMP 36.6; O2SAT 85–100
[2019-03-24 15:36] LABS: Abs Immature Grans 0.05 k/cumm (0.0-0.09); Absolute Basophil Count 0.06 k/cumm (0.0-0.2); Absolute Eosinophil Count 0.58 k/cumm (0.0-0.7); Absolute Lymphocyte Count 1.75 k/cumm (1.2-3.4); Absolute Monocyte Count 1.19 k/cumm (0.11-0.7); Absolute Neutrophil Count 8.39 k/cumm (1.2-6.7); Basophils % 0.5; Eosinophils % 4.8; HCT 42.7 % (36.0-46.0); HGB 14.2 g/dL (12.0-15.5); Immature Grans % 0.4; Lymphocytes % 14.6; Mean Corp. HGB Concentration 33.3 g/dL (32.0-36.0); Mean Corpuscular Hemoglobin 33.3 pg (27.0-33.0); Mean Platelet Volume 11.7 fL (8.0-11.0); Monocytes % 9.9; Neutrophils % 69.8; Platelet Count 221 x1000/uL (130-400); RBC 4.27 m/cumm (4.00-5.20); RBC Distribution Width 14.2 % (11.7-14.6); White Blood Cell Count 12.02 k/cumm (4.4-10.8)
--- NOTE | 2019-03-24 15:36 | ED.GENADUL_ITS ---
Discharge Plan Disposition Patient Disposition: HOME Condition: Stable Discharge Details Chief Complaint: GenMedical Clinical Impression: Small cell lung cancer, Flank pain Primary Care Provider: Cosme Oneil ED Provider: Duncan Calderón Home Meds and New Rx's Prescriptions: New cyclobenzaprine 10 mg tablet 10 mg PO Q8H PRN (Reason: muscle spasm) Qty: 20 RF: 0 No Action magnesium 30 mg Tablet 30 mg PO DAILY RF: 0 ciprofloxacin HCl 500 mg tablet 500 mg PO BID Qty: 14 RF: 0 Discharge Instructions Instructions: Cyclobenzaprine (By mouth) Additional Instructions: your cat scan did not reveal a cause for your hip pain. You do have significant vascular disease from your cancer You should follow up with your oncologist as soon as possible. If you have severe worsening pain, high fevers or feel more ill return to the emergency department for reevaluation Medical Decision Making 69 y ofemalian comes in with complaints of several weeks of intermittent weakness in the legs and discomfort without other systemic sytmpoms. She denies falls and has no leg swelling of the legs, no calf pain and no rashes and has full rom of the legs and 5/5 strength on exam with 2+ dp/pt pulses. She also has some dysuria. She is in no distress on exam, NIH of 0. Unclear what is causing her symptoms, will check for uti, electrolyte abnormalities and monitor. She has no deficits on exam so doubt entities such as cva and n ofindings to suggest cauda equina or sea at this time. She does have a BP in the 70's but states this is her baselnie and is very clear about this pt's bp remains in the 70's, she now has left flank and chest pain, given her pain will obtain CTA to eval for dissection given her continued hypotension pt stable now, and is now complaining of pain in bilateral hips. CT shows no acute process in the abdomen, does have some atypical appearance of the appendix but has no pain in rlq at all so doubt appendicitis. HAs significant vascular diease from her cancer in her chest (see vrad comments below). She is aware of this and states she is planning on seeing her oncologist in may. I strongly recommended she be seen sooner and if she wants to continue her care in [place] that she needs to go back there but that I am happy to refer her to oncology up here which she declined. She understands the improtance of having this done RUTH and I advised if she gets worse in any way in the mean time to return to the emergency department. She understands this. I don't have a clear reason for her hip pain, no evidence of infection and given it is bilateral without fx's on ct doubt fx. Could be muscle spasm or strain, will try muscle relaxers. Differential Diagnosis hypotension, uti, electrolyte abnormality Imaging Data Radiologic Study: Attestation: I personally reviewed and interpreted this imaging study as follows: Imaging: CT Scan Radiologist's impression: IMPRESSION: 1. Right upper lobe pulmonary artery encased and narrowed by abnormal soft tissue at the right pulmonary hilum. No pulmonary embolism identified. 2. Unusual amorphous soft tissue prominence in the upper anterior mediastinum, partially obscured by artifact, uncertain etiology. Abnormal masslike soft tissue density anterior to the esophagus measuring 1.7 cm x 1.4 cm with mass effect upon the esophageal lumen. Is there a known history of cancer? 3. 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 Reconstitution of flow noted in the right subclavian artery and right common carotid artery although the right common carotid appears significantly smaller than the left. 4. 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 Reconstitution of flow in the left subclavian and left vertebral artery. 5. 3.2 cm x 4.0 cm hiatal hernia. 6. Compression/burst type fracture at T12 with moderate loss of vertebral height and fracture extension through the posterior vertebral wall with posterior displacement of a portion of vertebral wall moderately narrowing the central canal, chronicity uncertain, not included within the qakcq-hq-jlij of the prior exams from February 24 or February 26, 2019. Old fracture suspected. Superimposed acute or subacute fracture component not confidently excluded. Clinical correlation recommended IMPRESSION: 1. No acute bowel pathology demonstrated. 2. 1.3 cm x 2.0 cm indeterminate left adrenal nodule, partially visualized on the comparison exam from 02/24/2019. 3. 7 mm indeterminate hypoattenuating lesion in the pancreatic body. A small cyst is suspected. A small pseudocyst or cystic neoplasm is not excluded. 4. Normal appearing gas and stool filled thin-walled proximal appendix from the mid appendix to the appendiceal ostium. Distal 3rd of the appendix fluid-filled and mildly distended to 8 mm maximum transverse dimension. No surrounding inflammatory change. Early or mild appendicitis could have this appearance although clinical correlation is recommended as the imaging appearance is borderline. 5. Otherwise, no acute bowel causing demonstrated. 6. Moderate-severe narrowing of the proximal left renal artery. ECG Data Attestation: I personally reviewed and interpreted this ECG (s) as follows: Prior ECG tracings: not available for review Interpretation: sinus tachycardia, rate of 115, pr 182, no acute st t wave ischemic findings HPI General Date/Time Provider Initiated Documentation: 03/24/19 15:05 . Limitations to Documentation: no limitations . Information obtained by: patient . History of Present Illness 69 year old F presents to the emergency department with the chief complaint of leg weakness, described as moderate, Quality is described as aching, and it has been intermittent. No relieving factors improve symptom(s), No exacerbating factors reported . Patient did receive the following treatments prior to arrival, none Related Data Home Medications Medication Instructions Recorded Confirmed ciprofloxacin HCl 500 mg PO BID #14 tab 02/24/19 02/25/19 magnesium 30 mg PO DAILY 02/24/19 02/25/19 cyclobenzaprine 10 mg PO Q8H PRN #20 tab 03/24/19 Previous Rx's Medication Instructions Recorded ciprofloxacin HCl 500 mg PO BID #14 tab 02/24/19 cyclobenzaprine 10 mg PO Q8H PRN #20 tab 03/24/19 Allergies Allergy/AdvReac Type Severity Reaction Status Date / Time penicillin G AdvReac Unverified 02/25/19 10:43 penicillin V AdvReac Unverified 02/25/19 10:43 General Stated Complaint: GenMedical RUBEN: 3 Review of Systems Review of Systems All systems reviewed & are unremarkable except as noted in HPI and below Constitutional Denies chills and Denies fever(s) ENT Denies change in voice Cardiovascular Denies chest pain and Denies dyspnea Respiratory Denies cough and Denies dyspnea Gastrointestinal Denies abdominal pain, Denies nausea and Denies vomiting Integumentary/Breasts Denies rash Endocrine Denies heat intolerance PFSH Social History Smoking/Tobacco Use Status: Current every day Tobacco Type: cigarettes Alcohol Intake: current Alcohol Intake frequency: a few times a month Drug use: Daily Substance use type: marijuana Do you feel safe at home: Yes Do you feel safe in your relationship?: Yes Exam Const General: no acute distress Orientation: alert HENMT Head: normal to inspection Ears: external ears normal General nose exam: external nose normal Mouth: moist mucous membranes Eyes General: appearance normal, both eyes and all related structures Neck Neck: normal visual inspection Resp Effort & Inspection: normal respiratory effort and able to speak in complete sentences Cardio Rate: regular rate Skin General skin exam: no rashes or lesions noted Neuro General: alert and oriented x3 Extrem General: normal to inspection Psych Mental Status: mental status grossly normal Course Vital Signs Temperature 36.6 C 03/24/19 15:04 Pulse 115 H 03/24/19 15:04 Respiratory Rate 16 03/24/19 15:04 Blood Pressure 49/24 L 03/24/19 15:04 Pulse Oximetry 100 03/24/19 15:04 Temperature 36.6 C 03/24/19 15:04 Temperature Source Skin 03/24/19 15:04 Pulse 115 H 03/24/19 15:04 Respiratory Rate 16 03/24/19 15:04 Respiratory Effort Non-Labored 03/24/19 15:11 Blood Pressure 49/24 L 03/24/19 15:04 Blood Pressure Position Sitting 03/24/19 15:04 Pulse Oximetry 100 03/24/19 15:04 Oxygen Delivery Method Room Air 03/24/19 15:04 Oxygen Flow Rate 0 03/24/19 15:04
[2019-03-24] MEDS: Normal Saline 1,000 ML 1000 ML IV (15:49)
[2019-03-24 15:51] LABS: PTT Activated 25.9 sec (21.0-31.4); Prothrombin Time 9.5 sec (9.3-11.0)
[2019-03-24 15:54] LABS: ALT 21 U/L (12-78); AST 12 U/L (15-37); Albumin 3.6 g/dL (3.4-5.0); Alkaline Phosphatase 91 U/L (46-116); BUN 21 mg/dL (7-18); Bilirubin, Total 0.2 mg/dL (0.2-1.0); CREATININE 0.81 mg/dL (0.55-1.02); Calcium 9.7 mg/dL (8.5-10.1); Chloride 103 mmol/L (98-107); Glucose 95 mg/dL (70-100); Lipase 93 U/L (73-393); Magnesium 2.2 mg/dL (1.8-2.4); NT-proBNP 274 pg/mL; Potassium 3.9 mmol/L (3.5-5.1); Sodium 140 mmol/L (136-145); Total Protein 7.6 g/dL (6.4-8.2)
[2019-03-24 15:56] LABS: Troponin I < 0.05 ng/mL (0.00-0.06)
[2019-03-24 16:20] LABS: Bilirubin Negative (Negative); Blood Negative (Negative); Clarity Clear (Clear); Glucose Negative (Negative); Ketones Negative (Negative); Leukocyte Esterase Negative (Negative); Nitrite Negative (Negative); Urobilinogen 0.2 EU/dL (Up TO 0.2)
--- NOTE | 2019-03-24 17:20 | DI.CT_ITS ---
SYMPTOM/DIAGNOSIS: CHEST AND ABDOMINAL PAIN, HYPOTENSION CT ANGIOGRAPHY CHEST, ABDOMEN AND PELVIS: CT angiography was performed with multi slice acquisition and multi planar and 3D reconstruction. Comparison is 02/26/19 and 02/24/19 CT ANGIOGRAPHY CHEST: CT angiography was performed with multi slice acquisition and multi planar and 3D reconstruction. There is no evidence of a pulmonary embolus. The right upper lobe pulmonary artery is narrowed and encased by abnormal soft tissue in the right superior hilum. There is atherosclerosis of the thoracic aorta but no evidence of dissection. 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 There is reconstitution of flow of the right subclavian artery in the proximal right common carotid artery. There also is occlusion of approximately 3 cm segment of the left subclavian artery. There is reconstitution of the distal left subclavian artery and vertebral artery. The visualized portions of the thyroid gland is grossly unremarkable. There is a soft tissue mass seen at the level of the thoracic inlet anterior to and compressing the esophagus. It measures 1.7 x 1.4 cm (Series 4, Image 10). Mildly prominent lymph nodes are seen in the mediastinum and subcarinal region. No pleural effusion or pneumothorax is identified. Atelectatic changes are seen in the lung bases. There is scarring or atelectasis seen in the upper lobes and lingula. Paraseptal emphysematous changes are seen in the lungs, right greater than left. Heart size is within normal limits. No significant pericardial effusion is present. Degenerative changes are seen in the thoracic spine. There is a compression fracture deformity at T-12. This does not appear to have been present on the prior examinations. There is retropulsion in to the spinal canal. The AP diameter of the spinal canal measures 1.2 cm. There is loss of approximately 20% of the height of the vertebral body IMPRESSION: 1. No evidence of a pulmonary embolus 2. 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 3. 1.7 x 1.4 cm soft tissue mass impinging upon or arising from the anterior esophagus at the thoracic inlet. Upper endoscopy or barium swallow should be considered for further evaluation. 4. T-12 compression fracture deformity which does not appear to have been present on the examination from 02/26/19. There is mild narrowing of the central spinal canal and loss of approximately 20% of the height of the vertebral body noted. 5. Compression and encasement of the pulmonary artery branch leading to the right upper lobe due to soft tissues seen in the right hilum. 6, PET CT Scan should be considered in this patient for further evaluation. CT ABDOMEN AND PELVIS: There is a hiatal hernia present. The liver is normal in size. No evidence of an hepatic mass is seen. The gallbladder is negative. There is no biliary ductal dilatation. There is a 0.7 cm hypodense lesion in the body of the pancreas which is otherwise unremarkable. The spleen is unremarkable. There is a 1.3 x 2 cm hypodense left adrenal nodule. The right adrenal gland is unremarkable. The left adrenal nodule is stable compared to the CT scan from 02/24/19. The kidneys show normal and symmetric enhancement. No suspicious mass is seen. There is a cyst seen in the right kidney. The urinary bladder is intact. Reproductive organs are unremarkable. There is atherosclerosis of the abdominal aorta but no evidence of aneurysm or dissection. There is narrowing of the proximal celiac artery near its origin. The superior mesenteric and inferior mesenteric arteries are patent. There is moderately severe narrowing of the proximal left renal artery. The right renal artery is widely patent. Calcific plaque is seen in both the right and left common iliac arteries. There is mild narrowing of the right common iliac artery and moderate narrowing of the left common iliac artery. The right external iliac artery is patent. The right internal iliac artery shows some narrowing distally. The left external iliac artery is widely patent. There is mild narrowing of the left internal iliac artery distally. No significant adenopathy, ascites or pneumoperitoneum is seen. There is colonic diverticulosis but no evidence of acute diverticulitis. No evidence of bowel obstruction seen. No findings to suggest acute appendicitis are present. No acute osseous abnormalities identified. IMPRESSION: 1. 1.3 x 2 cm indeterminate left adrenal nodule 2. 7 mm hypodense lesion in the body of the pancreas. While this may represent a cyst, a neoplasm cannot be excluded. 3. No definite evidence to suggest acute appendicitis. Please correlate clinically.
[2019-03-24] MEDS: fentaNYL 100 MCG/2 ML VIAL 50 MCG IVP (17:40)
--- NOTE | 2019-03-24 19:17 | DI.VRAD_ITS ---
Addendum created by Byron Swain MD on 03/24/2019 7:23:01 PM EDT This case was discussed personally with Duncan Salter at 7:22 PM EDT on 03/24/2019. Initial report created on 03/24/2019 7:17:22 PM EDT EXAM: CT Angiography Chest With Contrast EXAM DATE/TIME: 03/24/2019 5:20 PM CLINICAL HISTORY: 69 years old, female; Other: Hypotensive; Patient HX: Chest and abdominal pain; Hypotension TECHNIQUE: Imaging protocol: Axial computed tomographic angiography images of the chest with intravenous contrast using CT angiography protocol. Coronal and sagittal reformatted images were created and reviewed. 3D rendering: MIP reconstructed images were created and reviewed. COMPARISON: CT CHEST PE CTA 02/26/2019 12:19 PM FINDINGS: Tubes, catheters and devices: Implanted Port-A-Cath in the right anterior chest wall with an associated catheter extending into the superior vena cava. Pulmonary arteries: Right upper lobe pulmonary artery encased and narrowed by abnormal soft tissue at the right pulmonary hilum. No pulmonary embolism identified. Aorta: No thoracic aortic aneurysm or dissection. Other arteries: Brachiocephalic artery completely occluded over an approximately 2 cm proximal segment. Reconstitution of flow in the right subclavian artery and right common carotid artery although the right common carotid appears significantly smaller than the left. Left common carotid artery widely patent. 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 Reconstitution of flow in the left subclavian and left vertebral artery. Flow also noted in the proximal right vertebral artery. Thyroid: Thyroid gland partially excluded from view but grossly unremarkable through its visualized portion. Lungs: Platelike atelectasis. No region of pulmonary consolidation. Minimal changes of emphysema at the lung apices. Scattered tiny nodular pulmonary densities seen on the high-resolution exam, nonspecific. Pleural space: No pleural effusion or pneumothorax. Heart: Normal sized heart. Mediastinum: 3.2 cm x 4.0 cm hiatal hernia. Lymph nodes: Shotty mediastinal and hilar lymph nodes, nonspecific. Unusual amorphous soft tissue prominence in the upper anterior mediastinum, partially obscured by artifact, uncertain etiology. Abnormal masslike soft tissue density anterior to the esophagus measuring 1.7 cm x 1.4 cm on image 10 of series 4 with mass effect upon the esophageal lumen. Is there a known history of cancer? Bones/joints: Compression/burst type fracture at T12 with moderate loss of vertebral height and fracture extension through the posterior vertebral wall with posterior displacement of a portion of vertebral wall moderately narrowing the central canal, chronicity uncertain. Old fracture suspected. Superimposed acute or subacute fracture component not confidently excluded. Clinical correlation recommended. Otherwise, no acute fracture seen in the bones of the chest. Soft tissues: Unremarkable. IMPRESSION: 1. Right upper lobe pulmonary artery encased and narrowed by abnormal soft tissue at the right pulmonary hilum. No pulmonary embolism identified. 2. Unusual amorphous soft tissue prominence in the upper anterior mediastinum, partially obscured by artifact, uncertain etiology. Abnormal masslike soft tissue density anterior to the esophagus measuring 1.7 cm x 1.4 cm with mass effect upon the esophageal lumen. Is there a known history of cancer? 3. 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 Reconstitution of flow noted in the right subclavian artery and right common carotid artery although the right common carotid appears significantly smaller than the left. 4. 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 Reconstitution of flow in the left subclavian and left vertebral artery. 5. 3.2 cm x 4.0 cm hiatal hernia. 6. Compression/burst type fracture at T12 with moderate loss of vertebral height and fracture extension through the posterior vertebral wall with posterior displacement of a portion of vertebral wall moderately narrowing the central canal, chronicity uncertain, not included within the [id number] of the prior exams from February 24 or February 26, 2019. Old fracture suspected. Superimposed acute or subacute fracture component not confidently excluded. Clinical correlation recommended. EXAM: CT Angiography Abdomen and Pelvis With Contrast EXAM DATE/TIME: 03/24/2019 5:20 PM CLINICAL HISTORY: 69 years old, female; Other: Hypotensive; Patient HX: Chest and abdominal pain; Hypotension TECHNIQUE: Imaging protocol: Axial computed tomographic angiography images of the abdomen and pelvis with intravenous contrast material. Coronal and sagittal reformatted images were created and reviewed. 3D rendering: MIP reconstructed images were created and reviewed. COMPARISON: CT CHEST PE CTA 02/26/2019 12:19 PM FINDINGS: VASCULATURE: Aorta: Atherosclerotic calcification and plaque throughout the abdominal aorta but no aneurysmal dilatation or dissection. Celiac trunk and mesenteric arteries: Moderate tortuous irregular narrowing through a 1.5 cm segment of the proximal celiac artery near its origin. Superior mesenteric artery widely patent. Inferior mesenteric artery widely patent. Renal arteries: Right renal artery widely patent. Moderate-severe proximal narrowing of the left renal artery. Right iliac arteries: Atherosclerotic calcification and plaque through the right common iliac artery with mild irregular narrowing. Right external iliac artery widely patent. Right internal iliac artery patent through its proximal segment with irregular narrowing noted in its more distal branches. Left iliac arteries: Atherosclerotic calcification and plaque in the left common iliac artery with moderate irregular narrowing. Left external iliac artery widely patent. Left internal iliac artery patent with mild irregular narrowing through its distal branches. ABDOMEN: Liver: Grossly unremarkable unenhanced liver. Gallbladder and bile ducts: Gallbladder partially decompressed. Pancreas: 7 mm hypoattenuating lesion in the pancreatic body, image 39 of series 4. Otherwise normal-appearing pancreas. Spleen: Normal appearing spleen. Adrenals: Normal appearing right adrenal gland. 1.3 cm x 2.0 cm indeterminate left adrenal nodule, also partially visualized on the comparison exam from 02/24/2019. Kidneys and ureters: Small indeterminate hypoattenuating right renal lesion, incompletely characterized but statistically most likely a small renal cyst. Otherwise normal-appearing kidneys. No hydronephrosis. No obstructing ureteral stones. Stomach and bowel: No oral contrast. Stomach partially decompressed. No small bowel dilatation to suggest obstruction. Fluid throughout the small bowel. Colonic diverticula, most concentrated through the distal descending and sigmoid segments of the colon. No evidence of diverticulitis or colitis. Appendix: Normal appearing gas and stool filled thin-walled proximal appendix from the mid appendix to the appendiceal ostium. Distal 3rd of the appendix fluid-filled and mildly distended to 8 mm maximum transverse dimension. No surrounding inflammatory change. PELVIS: Bladder: Normal appearing urinary bladder. Reproductive: Uterus and ovaries grossly unremarkable. ABDOMEN and PELVIS: Intraperitoneal space: No gross ascites or free air. Bones/joints: No acute fracture seen among the bones of the abdomen or pelvis. Soft tissues: No significant ventral or inguinal hernia. Lymph nodes: No pathologically enlarged mesenteric, retroperitoneal, or pelvic sidewall lymph nodes. IMPRESSION: 1. No acute bowel pathology demonstrated. 2. 1.3 cm x 2.0 cm indeterminate left adrenal nodule, partially visualized on the comparison exam from 02/24/2019. 3. 7 mm indeterminate hypoattenuating lesion in the pancreatic body. A small cyst is suspected. A small pseudocyst or cystic neoplasm is not excluded. 4. Normal appearing gas and stool filled thin-walled proximal appendix from the mid appendix to the appendiceal ostium. Distal 3rd of the appendix fluid-filled and mildly distended to 8 mm maximum transverse dimension. No surrounding inflammatory change. Early or mild appendicitis could have this appearance although clinical correlation is recommended as the imaging appearance is borderline. 5. Otherwise, no acute bowel causing demonstrated. 6. Moderate-severe narrowing of the proximal left renal artery. Dictated and Authenticated by: Byron Swain MD. Ordering:KIRILL Song MD
[2019-03-24] MEDS: Cyclobenzaprine 10 MG TAB PO (19:33)
== END 2019-03-24 19:50 | disposition home or self-care (01) ==
PROVIDERS: Emergency Provider Emergency Medicine; PCP Specialist/Technologist Athletic Trainer
DX: R53.1 Weakness (principal); I99.9 Unspecified disorder of circulatory system; R30.0 Dysuria; M25.551 Pain in right hip; M25.552 Pain in left hip; R07.89 Other chest pain; M54.5 Low back pain; C34.90 Malignant neoplasm of unspecified part of unspecified bronchus or lung; F17.210 Nicotine dependence, cigarettes, uncomplicated
CPT/HCPCS: 36415; 74177; 80053; 83690; 93005; 96361; 96374; 99285; 81003; 83735; 83880; 84484; 85025; 85610; 85730; 93010; J3010; J3490

== ENCOUNTER 2019-04-04 03:47 | Outpatient (RCR) | payer MEDICARE, OTHER, SELFPAY ==
[2019-04-04] MEDS: Heparin 500 UNITS/5 ML SYRINGE IV (09:00)
[2019-04-04] MEDS: Normal Saline Flush 10 ML SYR IVP (09:00)
== END 2019-04-26 23:59 | disposition home or self-care (01) ==
LOC: INF 03:47
PROVIDERS: PCP Specialist/Technologist Athletic Trainer; Visit Provider Internal Medicine
DX: Z45.2 Encounter for adjustment and management of vascular access device (principal)
CPT/HCPCS: 96523